=== PATIENT | female | born 1980 | race African-American/Black ===

== ENCOUNTER 2019-07-03 17:26 | Emergency (ER) | payer OTHER ==
[~2019-07-03] VITALS: Ht 170.2 cm; Wt 99.8 kg
--- NOTE | 2019-07-03 17:34 | Emergency Room Report ---
History of Present Illness General Chief Complaint: To Be Triaged Present Illness HPI 38-year-old female recent seizure just prior to arrival, unknown if chronic versus new, patient is allegedly 12 weeks , we do not know for sure, patient is currently postictal history is limited, no one is at bedside or if any family is available. Her friend told EMS that patient had a seizure prior to arrival. Reevaluation god sister at bedside 5:48pm patient was passing in and out syncopized, no tonic clonic movement, she states the hands were shaking, but god sister thinks she had a seizure Allergies: Coded Allergies: No Known Allergies (Unverified , 07/03/19) Patient History Limited by: medical condition - Patient postictal Past Medical History: see triage record Reviewed Nursing Documentation: PMH: Agreed; PSxH: Agreed Review of Systems All Other Systems: limited - Patient postictal Physical Exam Sp02 EP Interpretation: reviewed, normal General Appearance: alert, non-toxic Head: normocephalic, atraumatic Eyes: bilateral eye PERRL, bilateral eye EOMI ENT: uvula midline, moist mucus membranes Neck: supple, thyroid normal, supple/symm/no masses Respiratory: lungs clear, no respiratory distress, no retraction, no accessory muscle use Cardiovascular #1: normal peripheral pulses, regular rate, rhythm, no edema, no gallop, no murmur Gastrointestinal: non tender, soft, no guarding, no rebound Musculoskeletal: normal inspection Neurologic: alert, responsive, other - Confused Psychiatric: mood/affect normal Skin: no rash, warm/dry Medical Decision Making Diagnostic Impression: Primary Impression: Seizure Additional Impression: Preeclampsia Qualified Codes: O14.90 - Unspecified pre-eclampsia, unspecified trimester ER Course Patient with new onset seizure , apparently 16 weeks by ultrasound, labs unremarkable, patient is at baseline however she may require monitoring, this may be early onset preeclampsia, patient found to have high blood pressure 130s now down to systolic 103, patient is currently stable, plan is to transfer her to [facility] for evaluation. Reevaluation patient is a G5, , patient is now back to baseline, patient does not remember the incident Spoke with Dr. Bunch at 8:24pm will accept patient for observation at [facility] Laboratory Tests Test 07/03/19 17:45 07/03/19 18:15 White Blood Count 10.0 K/UL (4.8-10.8) Red Blood Count 3.37 M/UL (4.20-5.40) L Hemoglobin 10.6 G/DL (12.0-16.0) L Hematocrit 31.4 % (37.0-47.0) L Mean Corpuscular Volume 93 FL (80-99) Mean Corpuscular Hemoglobin 31.4 PG (27.0-31.0) H Mean Corpuscular Hemoglobin Concent 33.8 G/DL (32.0-36.0) Red Cell Distribution Width 11.8 % (11.6-14.8) Platelet Count 177 K/UL (150-450) Mean Platelet Volume 6.8 FL (6.5-10.1) Neutrophils (%) (Auto) 80.2 % (45.0-75.0) H Lymphocytes (%) (Auto) 12.9 % (20.0-45.0) L Monocytes (%) (Auto) 5.8 % (1.0-10.0) Eosinophils (%) (Auto) 0.7 % (0.0-3.0) Basophils (%) (Auto) 0.4 % (0.0-2.0) Prothrombin Time 10.0 SEC (9.30-11.50) Prothrombin Time INR 0.9 (0.9-1.1) PTT 27 SEC (23-33) D-Dimer 0.68 mg/L FEU (0.00-0.49) H Sodium Level 136 MMOL/L (136-145) Potassium Level 4.0 MMOL/L (3.5-5.1) Chloride Level 105 MMOL/L (98-107) Carbon Dioxide Level 27 MMOL/L (21-32) Anion Gap 4 mmol/L (5-15) L Blood Urea Nitrogen 7 mg/dL (7-18) Creatinine 0.7 MG/DL (0.55-1.30) Estimate Glomerular Filtration Rate > 60 mL/min (>60) Glucose Level 87 MG/DL (74-106) Calcium Level 9.2 MG/DL (8.5-10.1) Total Bilirubin 0.4 MG/DL (0.2-1.0) Aspartate Amino Transferase (AST) 15 U/L (15-37) Alanine Aminotransferase (ALT) 12 U/L (12-78) Alkaline Phosphatase 57 U/L (46-116) Troponin I 0.000 ng/mL (0.000-0.056) Total Protein 7.2 G/DL (6.4-8.2) Albumin 3.2 G/DL (3.4-5.0) L Globulin 4.0 g/dL Albumin/Globulin Ratio 0.8 (1.0-2.7) L Lipase 108 U/L (73-393) Human Chorionic Gonadotropin, Quant 77122 mIU/mL (1-6) H Urine Color Pale yellow Urine Appearance Clear Urine pH 6 (4.5-8.0) Urine Specific [place] 1.015 (1.005-1.035) Urine Protein Negative (NEGATIVE) Urine Glucose (UA) Negative (NEGATIVE) Urine Ketones 1+ (NEGATIVE) H Urine Blood Negative (NEGATIVE) Urine Nitrite Negative (NEGATIVE) Urine Bilirubin Negative (NEGATIVE) Urine Urobilinogen Normal MG/DL (0.0-1.0) Urine Leukocyte Esterase Negative (NEGATIVE) EKG Diagnostic Results EKG Time: 18:02 EP Interpretation: NSR, rate 85, QTc 435, no acute ST elevations, normal axis Rate: normal Rhythm: NSR ST Segments: no acute changes Rhythm Strip Diag. Results Rhythm Strip Time: 18:03 EP Interpretation: yes Rate: 96 Rhythm: NSR, no PVC's, no ectopy CT/MRI/US Diagnostic Results CT/MRI/US Diagnostic Results : Impression Procedure: US Pelvic Complete EXAM: US After First Trimester, Transabdominal CLINICAL HISTORY: Positive test. Evaluate for size and dates. TECHNIQUE: Real-time sonographic evaluation of the female pelvis obtained using grayscale and color flow. COMPARISON: NONE FINDINGS: Single live intrauterine gestation with variable presentation. The placenta is posterior. The amniotic fluid index is within normal limits, measuring 15.85 cm. The cervix is closed but was not specifically measured on this exam. Patient's LMP is reported as March 08, 2019 which corresponds to gestational age of 16 weeks 5 days giving JOSE MIGUEL of December 13, 2019 . BPD 2.79 cm 15 weeks 0 days HC 11.16 cm 15 weeks 3 days AC 9.22 cm 15 weeks 3 days FL 1.96 cm 15 weeks 6 days By this ultrasound, estimated gestational age is 15 weeks 3 days, corresponding to a sonographic JOSE MIGUEL of December 22, 2019 Estimated weight is 129 g +/- 19 g which is at the below fifth percentile. HC/AC ratio is 1.21 (normal range for this fetus is 1.06-1.32 ) FHR is 153 bpm. Limited sonographic survey of the anatomy reveals no gross abnormalities. The kidneys, stomach and urinary bladder were unremarkable. IMPRESSION: 1. Single-live intrauterine with EGA of 15 weeks 3 days by sonographic dating, which may be small for dates. 2. The placenta is posterior. The amniotic fluid index is within normal limits. The cervix is closed. 3. No gross abnormality is identified. Disposition: XFER SHT-TRM [facility] - [facility] Condition: Stable Patient Instructions: Seizure, Adult, [id number] Jaime Fowler MD Jul 03, 2019 17:34
--- NOTE | 2019-07-03 17:45 | NUR ---
ED Nurse Note: Patient bib her godsister d/t seizure like activity while in the car. Patient is aaox4, denies hx of seizure. Denies pain at this time. States she is . No injuries.
[2019-07-03 17:50] VITALS: BP 137/67
[2019-07-03 17:58] LABS: BASOPHILS % (AUTO) 0.4 % (0.0-2.0); EOSINOPHILS % (AUTO) 0.7 % (0.0-3.0); HEMATOCRIT 31.4 % (37.0-47.0); HEMOGLOBIN 10.6 G/DL (12.0-16.0); LYMPHOCYTES % (AUTO) 12.9 % (20.0-45.0); MEAN CORPUSCULAR VOLUME 93 FL (80-99); MONOCYTES % (AUTO) 5.8 % (1.0-10.0); NEUTROPHILS % (AUTO) 80.2 % (45.0-75.0); PLATELET COUNT 177 K/UL (150-450); RED BLOOD COUNT 3.37 M/UL (4.20-5.40); RED CELL DISTRIBUTION WIDTH 11.8 % (11.6-14.8)
[2019-07-03 18:15] LABS: ANION GAP 4 mmol/L (5-15); BLOOD UREA NITROGEN 7 mg/dL (7-18); CALCIUM 9.2 MG/DL (8.5-10.1); CARBON DIOXIDE 27 MMOL/L (21-32); CHLORIDE 105 MMOL/L (98-107); CREATININE 0.7 MG/DL (0.55-1.30); SODIUM 136 MMOL/L (136-145)
[2019-07-03 18:19] LABS: ALANINE AMINOTRANSFERASE 12 U/L (12-78); ALBUMIN 3.2 G/DL (3.4-5.0); ALBUMIN/GLOBULIN RATIO 0.8 (1.0-2.7); ALKALINE PHOSPHATASE 57 U/L (46-116); ASPARTATE AMINO TRANSFERASE 15 U/L (15-37); BILIRUBIN,TOTAL 0.4 MG/DL (0.2-1.0)
[2019-07-03 18:27] LABS: APPEARANCE,URINE CLEAR; BILIRUBIN, URINE NEGATIVE (NEGATIVE); COLOR,URINE PALE YELLOW; GLUCOSE, URINE (UA) NEGATIVE (NEGATIVE); KETONES,URINE 1+ (NEGATIVE); LEUKOCYTE ESTERASE ,URINE NEGATIVE (NEGATIVE); NITRITE,URINE NEGATIVE (NEGATIVE); PH,URINE 6 (4.5-8.0); PROTEIN,URINE NEGATIVE (NEGATIVE); UROBILINOGEN,URINE NORMAL MG/DL (0.0-1.0)
[2019-07-03 18:33] LABS: INR 0.9 (0.9-1.1)
[2019-07-03 18:48] VITALS: BP 100/73
--- NOTE | 2019-07-03 19:00 | NUR ---
ED Nurse Note: received report from RN Irais and assumed care, pt vss, family at the bedside.
--- NOTE | 2019-07-03 19:23 | NUR ---
ED Nurse Note: pt off to Ultrasound.
[2019-07-03 19:45] VITALS: BP 110/85
--- NOTE | 2019-07-03 19:50 | NUR ---
ED Nurse Note: PT BACK FROM ULTRASOUND, VSS, NSR ON WASH DRILLER HELPER, SZ AND ASPIRATION PRECAUTION IN PLACE, SAFETY PRECAUTION IN PLACE, FAMILY AT THE BEDSIDE, WARM BLANKET PROVIDED FOR COMFORT, PT ADVISED TO NOTIFY STAFF IF NEEDED ASSIST.
--- NOTE | 2019-07-03 20:19 | Diagnostic Imaging Report ---
EXAM: US After First Trimester, Transabdominal CLINICAL HISTORY: Positive test. Evaluate for size and dates. TECHNIQUE: Real-time sonographic evaluation of the female pelvis obtained using grayscale and color flow. COMPARISON: NONE FINDINGS: Single live intrauterine gestation with variable presentation. The placenta is posterior. The amniotic fluid index is within normal limits, measuring 15.85 cm. The cervix is closed but was not specifically measured on this exam. Patient's LMP is reported as March 08, 2019 which corresponds to gestational age of 16 weeks 5 days giving JOSE MIGUEL of December 13, 2019 . BPD 2.79 cm 15 weeks 0 days HC 11.16 cm 15 weeks 3 days AC 9.22 cm 15 weeks 3 days FL 1.96 cm 15 weeks 6 days By this ultrasound, estimated gestational age is 15 weeks 3 days, corresponding to a sonographic JOSE MIGUEL of December 22, 2019 Estimated weight is 129 g +/- 19 g which is at the below fifth percentile. HC/AC ratio is 1.21 (normal range for this fetus is 1.06-1.32 ) FHR is 153 bpm. Limited sonographic survey of the anatomy reveals no gross abnormalities. The kidneys, stomach and urinary bladder were unremarkable. IMPRESSION: 1. Single-live intrauterine with EGA of 15 weeks 3 days by sonographic dating, which may be small for dates. 2. The placenta is posterior. The amniotic fluid index is within normal limits. The cervix is closed. 3. No gross abnormality is identified.
[2019-07-03 21:45] VITALS: BP_SYST 103; BP_SYST 122; BP_DIAS 68
--- NOTE | 2019-07-03 22:13 | NUR ---
ED Nurse Note: PER MARLEN FROM [facility], RECEIVING RN WILL CALL BACK TO TAKE THE REPORT.
[2019-07-03 23:45] VITALS: BP_SYST 113; BP_SYST 125; BP_DIAS 75
--- NOTE | 2019-07-04 00:43 | NUR ---
ED Nurse Note: report given to RIDGE Flor from [facility]. pt pending xfr.
[2019-07-04 01:19] VITALS: BP 127/56
--- NOTE | 2019-07-04 01:19 | NUR ---
ED Nurse Note: ambulance at the bedside for transport, care endosred to EMS personnel, pt vss, resp even and unlabored on RA, belongings sent w/ pt.
== END 2019-07-04 01:19 | disposition short-term general hospital (02) ==
LOC: EMR 20:05
DX: O99.352 Diseases of the nervous system complicating pregnancy, second trimester (principal); O14.92 Unspecified pre-eclampsia, second trimester; Z3A.16 16 weeks gestation of pregnancy
CPT/HCPCS: 36415; 76856; 80053; 81003; 82962; 83690; 84484; 84702; 85025; 85379; 85610; 85730; 93005; 99284